=== PATIENT | female | born 1965 | race Caucasian/White ===

== ENCOUNTER 2016-10-06 17:17 | Inpatient (IN) | payer MEDICARE, OTHER ==
[~2016-10-06] VITALS: Ht 162.6 cm; Wt 59.0 kg
--- NOTE | 2016-10-06 17:48 | NUR ---
RN-CO: Admitting orders were given by Dr Mancini verbally. Noted.
[2016-10-06] MEDS ORDERED: LORAZEPAM 0.5 MG TABLET PO PRN (18:00)
[2016-10-06] MEDS ORDERED: MAGNESIUM HYDROXIDE 30 ML UDC PO PRN (18:00)
[2016-10-06] MEDS ORDERED: ACETAMINOPHEN 325 MG TABLET PO PRN (18:00)
[2016-10-06] MEDS ORDERED: MAG HYDROX/AL HYDROX/SIMETH 30 ML UDC PO PRN (18:00)
[2016-10-06 18:04] VITALS: BP 106/72
--- NOTE | 2016-10-06 18:08 | NUR ---
DIRECTOR OF PULMONARY UNIT-NOTES ADMITTED 50 Y.O FEMALE PATIENT. PATIENT ON 5150 FOR DANGER TO SELF. PATIENT IS UNDER THE CARE OF DR. RAY AND DR. RAMOS. DR. RAY IN THE UNIT AT THIS TIME AND SEEN THE PATIENT WITH ORDERS. UPON FACE TO FACE PATIENT AMBULATORY,NOTED WITH DEPRESSED AND EASILY ANGRY BEHAVIOR. PATIENT DENIES ANY SUICIDAL/HOMICIDAL IDEATION AT THIS TIME. CONTRABAND DONE .REFUSED BODY ASSESSMENT AT THIS TIME. WILL ENDORSE TO INCOMING NURSE FOR THE ADMISSION PROCESS AND CONTINUITY OF CARE.
[2016-10-06] MEDS: GABAPENTIN 100 MG CAPSULE PO SCH (18:36)
[2016-10-06] MEDS ORDERED: PROM25TA15 PO (18:55)
[2016-10-06] MEDS ORDERED: TOPI25CA PO (18:55)
[2016-10-06] MEDS ORDERED: OXYC20TA58 PO (18:55)
[2016-10-06] MEDS ORDERED: METH10TA4 PO (18:55)
[2016-10-06] MEDS ORDERED: LIDO30AD10 TP (18:55)
[2016-10-06] MEDS ORDERED: CLON0.5T4 PO (18:55)
[2016-10-06] MEDS ORDERED: DICL100G3 TP (18:55)
[2016-10-06] MEDS ORDERED: VORT5TAB PO (18:55)
[2016-10-06] MEDS ORDERED: FLUO-120 PO (18:55)
[2016-10-06] MEDS ORDERED: PREG100C PO (18:55)
[2016-10-06] MEDS ORDERED: OXYC-34 PO (18:55)
--- NOTE | 2016-10-06 19:25 | NUR ---
GPS RN NOTE PAGED EPIC ONCALL FOR HOME MED RECON. PATIENT KEEPS COMPLAINING OF PAIN, ASKING MEDS EVERY 5 MINS.
--- NOTE | 2016-10-06 20:00 | NUR ---
GPS RN NOTE PAGED [facility] AGAIN, WILL AWAIT FOR THE CALL BACK.
[2016-10-06 20:10] VITALS: BP 108/69
--- NOTE | 2016-10-06 20:40 | NUR ---
GPS RN NOTE ABLE TO TALK TO DR ADAMS FOR HOME MED RECON, CONTACTED THE PHARMACY TO VERIFY THEM WELL.
[2016-10-06] MEDS ORDERED: PROMETHAZINE HCL 25 MG TABLET PO PRN (21:00)
[2016-10-06] MEDS: LIDOCAINE 5% (PATCH) 1 EA PATCH TP SCH ×2 (21:00→21:36)
--- NOTE | 2016-10-06 23:10 | NUR ---
GPS RN NOTE PATIENT IS SLEEPING AND SNORING LOUDLY. SCHEDULED LIDOCAINE PATCH FOR 2100 DID NOT ADMINISTER, RETURN IT TO [facility] WITNESSED BY [facility] RN. WILL ENDORSE TO DAY SHIFT NURSE.
[2016-10-07] MEDS: oxyCODONE IR immediate release 5 MG CAPSULE PO PRN ×4 (00:23→19:24)
[2016-10-07] MEDS: ZOLPIDEM TARTRATE 5 MG TABLET PO PRN ×2 (01:56→22:02)
[2016-10-07 07:35] LABS: ALBUMIN 3.7 g/dL (3.4-5.0); BILIRUBIN,TOTAL 0.2 mg/dL (0.2-1.0); CALCIUM, SERUM 9.3 mg/dL (8.5-10.1); CREATININE 0.7 mg/dL (0.6-1.3); POTASSIUM 4.3 mmol/L (3.5-5.1)
[2016-10-07 08:00] VITALS: BP 114/71
[2016-10-07] MEDS: TOPIRAMATE 25 MG TABLET PO SCH (08:10)
[2016-10-07] MEDS: GABAPENTIN 100 MG CAPSULE PO SCH ×3 (08:10→16:03)
[2016-10-07] MEDS: clonazePAM 0.5 MG TABLET PO PRN ×2 (08:54→16:03)
--- NOTE | 2016-10-07 08:55 | NUR ---
GPS/RN PATIENT ANXIOUS, RESTLESS, REQUESTED KLONOPIN, ADMINISTERED KLONOPIN PO ORDERED, WILL CONTINUE TO MONITOR.
[2016-10-07] MEDS ORDERED: PREGABALIN 100 MG CAPSULE PO SCH (09:00)
[2016-10-07] MEDS ORDERED: FLUOXETINE HCL 20 MG CAPSULE PO SCH (09:00)
[2016-10-07] MEDS ORDERED: ARIPIPRAZOLE 5 MG TABLET PO SCH (09:00)
[2016-10-07] MEDS: LIDOCAINE 5% (PATCH) 1 EA PATCH TP SCH ×2 (10:27→21:27)
[2016-10-07] MEDS: NICOTINE PATCH (21MG) 21 MG PATCH.TD24 TD SCH (10:27)
--- NOTE | 2016-10-07 12:53 | NUR ---
GPS/RN PATIENT REPORTS 8/10 BACK PAIN ADMINISTERED OXYCODONE 20 MG ORDERED, WILL CONTINUE TO MONITOR.
[2016-10-07] MEDS: DULOXETINE HCL 30 MG CAPSULE.DR PO SCH (13:45)
[2016-10-07 15:38] VITALS: BP 104/68
--- NOTE | 2016-10-07 16:03 | NUR ---
GPS/RN PATIENT ANXIOUS, RESTLESS, REQUESTED KLONOPIN, ADMINISTERED KLONOPIN 0.5 MG PO ORDERED, WILL CONTINUE TO MONITOR.
--- NOTE | 2016-10-07 16:38 | NUR ---
Discharge Note: Patient lives with her partner in house located at [address] [place] [address] ([phone]). Patient would like to return home upon discharge. crisis worker spoke to patient's partner Kevin Gardiner ([phone]) who confirmed that patient and him rent a room in a house and stated that patient can return home upon discharge. crisis worker will help form a safe and proper discharge.
[2016-10-07 20:00] VITALS: BP 105/61
[2016-10-08] MEDS: oxyCODONE IR immediate release 5 MG CAPSULE PO PRN ×4 (01:48→20:46)
[2016-10-08 08:00] VITALS: BP_SYST 160; BP_SYST 99; BP_DIAS 63; BP_DIAS 88
[2016-10-08] MEDS: NICOTINE PATCH (21MG) 21 MG PATCH.TD24 TD SCH (08:22)
[2016-10-08] MEDS: TOPIRAMATE 25 MG TABLET PO SCH (08:23)
[2016-10-08] MEDS: DULOXETINE HCL 30 MG CAPSULE.DR PO SCH (08:23)
[2016-10-08] MEDS: GABAPENTIN 100 MG CAPSULE PO SCH ×3 (08:23→16:06)
[2016-10-08] MEDS: LIDOCAINE 5% (PATCH) 1 EA PATCH TP SCH ×2 (08:23→21:14)
[2016-10-08] MEDS: PREGABALIN 100 MG CAPSULE PO SCH (09:51)
--- NOTE | 2016-10-08 11:03 | NUR ---
distillery worker general spoke to patient's partner Kevin Gardiner ([phone]) who stated that patient has been calling him stating that she is frustrated and wants to be transferred to [facility] in [place]. distillery worker general informed patient's partner that we do not do hospital to hospital transfers. Patient's partner stated that patient wants to return home. distillery worker general will follow-up with psychiatrist and patient regarding discharge plan.
[2016-10-08] MEDS: clonazePAM 0.5 MG TABLET PO PRN (11:29)
--- NOTE | 2016-10-08 14:28 | NUR ---
marble worker spoke to Sharda ([phone]) from [facility] who confirmed that they can arrange transportation when patient is ready for discharge. marble worker will follow-up with Sharda to arrange transportation.
[2016-10-08 16:00] VITALS: BP 119/79
[2016-10-08] MEDS: LORAZEPAM 1 MG TABLET PO PRN ×2 (16:36→23:45)
[2016-10-08 20:00] VITALS: BP 104/71
[2016-10-08] MEDS: QUETIAPINE FUMARATE 100 MG TABLET PO SCH (21:14)
[2016-10-09] MEDS: oxyCODONE IR immediate release 5 MG CAPSULE PO PRN ×4 (02:41→22:56)
[2016-10-09] MEDS: LORAZEPAM 1 MG TABLET PO PRN ×3 (06:39→19:42)
[2016-10-09 08:16] VITALS: BP 100/65
[2016-10-09] MEDS: LIDOCAINE 5% (PATCH) 1 EA PATCH TP SCH ×2 (08:44→21:44)
[2016-10-09] MEDS: DULOXETINE HCL 30 MG CAPSULE.DR PO SCH (08:44)
[2016-10-09] MEDS: GABAPENTIN 100 MG CAPSULE PO SCH ×3 (08:44→16:49)
[2016-10-09] MEDS: PREGABALIN 100 MG CAPSULE PO SCH (08:44)
[2016-10-09] MEDS: TOPIRAMATE 25 MG TABLET PO SCH (08:44)
[2016-10-09] MEDS: NICOTINE PATCH (21MG) 21 MG PATCH.TD24 TD SCH (08:44)
--- NOTE | 2016-10-09 10:42 | NUR ---
SUPERVISOR MAINTENANCE AND CUSTODIANS-NOTES PATIENT C/O 10 LEFT GROIN PAIN AND REQUESTING FOR PAIN MEDICATIONS. OXY IR 40MG P.O GIVEN PRN ORDER. WILL CONT. MONITORING FOR SAFETY.
--- NOTE | 2016-10-09 11:20 | NUR ---
WOODYARD CRANE OPERATOR-NOTES PATIENT IN THE DAY ROOM WATCHING TV,CALM AND COMFORTABLE.
--- NOTE | 2016-10-09 13:21 | NUR ---
LOGGING SHOVEL OPERATOR-NOTES PATIENT STATED " I NEED MY ATIVAN FOR ANXIETY", ATIVAN 1MG P.O GIVEN ORDERED.WILL CONT. MONITORING.
--- NOTE | 2016-10-09 14:00 | NUR ---
AGRICULTURAL SYSTEMS SPECIALIST-NOTES PATIENT WATCHING TV IN THE DAY ROOM,CALM AND COOPERATIVE AT THIS TIME.
--- NOTE | 2016-10-09 14:25 | NUR ---
REGISTERED DENTAL ASSISTANT RDA-NOTES PATIENT DEMANDED TO HAVE HER OXY Ir MEDICATION. EXPLAINED THAT THE MEDICATIONS IS NOT DUE YET. NEED TWO MORE HOURS TO HAVE THE NEXT DOSE. PATIENT GETS ANGRY,AND ARGUMENTATIVE.THE NAVIGATION OFFICER SHOWED TO THE PATIENT THE RECORDED TIME GIVEN TO HER FROM THE MAR.
[2016-10-09 16:15] VITALS: BP 103/75
--- NOTE | 2016-10-09 16:53 | NUR ---
INFORMATION SECURITY SYSTEMS INSTRUCTOR-NOTES PATIENT REQUESTING FOR PAIN MEDICATION C/O 07/17 LEFT GROIN PAIN. OXY IR 40MG P.O GIVEN PRN ORDER. WILL CONT. MONITORING FOR SAFETY.
--- NOTE | 2016-10-09 18:24 | NUR ---
SALES AGENT INSURANCE-NOTES PATIENT WATCHING TV IN THE DAY ROOM,CALM,NO ACUTE DISTRESS NOTED. WILL ENDORSE TO THE [facility] AND [employer] FARMER FOR CONTINUITY OF CARE.
[2016-10-09 20:00] VITALS: BP 126/88
[2016-10-09] MEDS: QUETIAPINE FUMARATE 100 MG TABLET PO SCH (21:44)
[2016-10-10] MEDS: LORAZEPAM 1 MG TABLET PO PRN ×2 (02:40→10:24)
[2016-10-10 08:00] VITALS: BP 111/69
[2016-10-10] MEDS: PREGABALIN 100 MG CAPSULE PO SCH (08:50)
[2016-10-10] MEDS: TOPIRAMATE 25 MG TABLET PO SCH (08:50)
[2016-10-10] MEDS: NICOTINE PATCH (21MG) 21 MG PATCH.TD24 TD SCH (08:50)
[2016-10-10] MEDS: LIDOCAINE 5% (PATCH) 1 EA PATCH TP SCH (08:50)
[2016-10-10] MEDS: DULOXETINE HCL 30 MG CAPSULE.DR PO SCH (08:51)
[2016-10-10] MEDS: GABAPENTIN 100 MG CAPSULE PO SCH ×2 (08:51→12:35)
[2016-10-10] MEDS: oxyCODONE IR immediate release 5 MG CAPSULE PO PRN (09:11)
--- NOTE | 2016-10-10 09:11 | NUR ---
[id number]: GAVE OXY IR 20 MG PO DUE TO 8/10 GENERALIZED PAIN UPON PT REQUEST AND WILL CONTINUE TO MONITOR FOR EFFECTIVENESS OF MEDICATION
[2016-10-10] MEDS ORDERED: DULOXETINE HCL 30 MG CAPSULE.DR PO SCH (10:00)
--- NOTE | 2016-10-10 10:24 | NUR ---
[id number]: GAVE ATIVAN 1 MG PO DUE TO SEVERE ANXIETY UPON PT REQUEST AND WILL CONTINUE TO MONITOR FOR EFFECTIVENESS OF MEDICATION
--- NOTE | 2016-10-10 14:45 | NUR ---
THC-CV-VOMWN: PT IS 50 YEARS OLD FEMALE DISCHARGE AMA GOING TO [address] [place]. [address]. COMPLIANT WITH MEDICATIONS, UNCOOPERATIVE WITH TREATMENT PLANS. PT DENIES SI/HI AND INSTRUCTED TO GO TO THE CLOSEST ER IF DEVELOPING SI/HI. EDUCATED PT ABOUT AFTER CARE PLAN AND COPY PROVIDED. RETURN PERSONAL BELONGINGS TO PT. NOTIFIED DR. RAMOS AND DR. MCCORD. RECEIVED DISCHARGE ORDER FROM DR. MCCORD AND DR. RAMOS IN AGREEMENT WITH DISCHARGE. PT SIGNED DISCHARGE PAPERWORK. PT REFUSED SKIN ASSESSMENT. PT LEFT THE UNIT ACCOMPANIED BY STELLA WATSON VIA PRIVATE CAR.
[2016-10-11] MEDS ORDERED: DULOXETINE HCL 30 MG CAPSULE.DR PO SCH (09:00)
== END 2016-10-10 14:45 | disposition home or self-care (01) | DRG 885 ==
LOC: GPS 17:17
PROVIDERS: ADMIT Psychiatry & Neurology Psychiatry; ATTEND Psychiatry & Neurology Psychiatry
DX: F31.30 Bipolar disorder, current episode depressed, mild or moderate severity, unspecified (principal); R45.851 Suicidal ideations; G89.4 Chronic pain syndrome; G43.909 Migraine, unspecified, not intractable, without status migrainosus; M79.7 Fibromyalgia; Z81.8 Family history of other mental and behavioral disorders; Z79.899 Other long term (current) drug therapy; Z90.710 Acquired absence of both cervix and uterus
CPT/HCPCS: 36415; 80053-TC; 80061-TC; 87081-TC; Q0169